=== PATIENT | male | born 1990 | race Caucasian/White ===

== ENCOUNTER 2019-07-18 13:17 | Outpatient (RCR) | payer OTHER | END 2019-07-21 15:55 | disposition home or self-care (01) | LOC: WSOH 13:17 | DX: S63.501D Unspecified sprain of right wrist, subsequent encounter (principal); W01.0XXD Fall on same level from slipping, tripping and stumbling without subsequent striking against object, subsequent encounter; Z90.89 Acquired absence of other organs; T78.40XD Allergy, unspecified, subsequent encounter ==